=== PATIENT | female | born 1985 | race Caucasian/White ===

== ENCOUNTER 2020-04-13 15:26 | Emergency (ER) | payer OTHER ==
[~2020-04-13] VITALS: Ht 149.9 cm; Wt 52.2 kg
--- OUTSIDE RECORDS SUMMARY | ~2020-04-13 | XMS | Encounter Summary ---
Demographics + + + | Address | [address] | | | [place] [address] | + + + | Home Phone | | + + + | Preferred Language | Unknown | + + + | Marital Status | Single | + + + | Uatsdin Affiliation | 1013 | + + + | Race | Unknown | + + + | Ethnic Group | Unknown | + + + Author + + + | Author | [facility] | | | and Errolana | + + + | Organization | [facility] | | | and Errolana | + + + | Address | Unknown | + + + | Phone | Unavailable | + + + Support + + +---------+ + | Name | Relationship | Address | Phone | + + +---------+ + | Rashmi Kidd | ECON | Unknown | | + + +---------+ + Care Team Providers + +------+ + | Care Wax Pattern Assembler Name | Role | Phone | + +------+ + PCP | Unavailable | + +------+ + Encounter Details +--------+ + + + + | Date | Type | Department | Care Team | Description | +--------+ + + + + | 06/15/ | Hospital | [facility] | Duglas Carolina MD | EARLY ONSET | | 2001 - | Encounter | [facility] | [address] | DELIVERY-UNSPEC | | | | AND DELIV[address] | [address] [place], [place] | | | 06/[address]/ | | [address] | [id number] | | | 2001 | | [place], [place] | | | | | | [address] | | | | | | [phone] | | | +--------+ + + + + Social History + +-------+ +--------+------+ | Tobacco Use | Types | Packs/Day | Years | Date | | | | | Used | | + +-------+ +--------+------+ | Never Assessed | | | | | + +-------+ +--------+------+ + + + | Sex Assigned at | Date Recorded | | | | + + + | Not on file | | + + + + + + + | Job Start Date | Occupation | Industry | + + + + | Not on file | Not on file | Not on file | + + + + + + + + | Travel History | Travel Start | Travel End | + + + + + + | No recent travel history available. | + + documented as of this encounter Plan of Treatment Not on filedocumented as of this encounter Visit Diagnoses + + | Diagnosis | + + | Early onset of delivery, unspecified as to episode of care | + + documented in this encounter"
--- OUTSIDE RECORDS SUMMARY | ~2020-04-13 | XMS | Encounter Summary ---
Demographics + + + | Address | [address] | | | [place] [address] | + + + | Home Phone | | + + + | Preferred Language | Unknown | + + + | Marital Status | Single | + + + | Yazdanism Affiliation | 1013 | + + + | Race | Unknown | + + + | Ethnic Group | Unknown | + + + Author + + + | Author | [facility] | | | and Errolana | + + + | Organization | [facility] | | | and Errolana | [...] Team Providers + +------+ + | Care Dynamite Packing Machine Feeder Name | Role | Phone | + +------+ + PCP | Unavailable | + +------+ + Encounter Details +--------+ + + + + | Date | Type | Department | Care Team | Description | +--------+ + + + + | 09/28/ | Emergency | [facility] | Conversion | Encounter for Other | | 2008 | | MEDICAL CENTER | Transaction, | Specified Aftercare | | | | EMERGENCY CENTER | Provider Unknown | | | | | [address] [facility] [address] | | | | | | [place], [place] | (Fax) | | | | | [address] | | | | | | [phone] | | | +--------+ + + + [...] + | Diagnosis | + + | Encounter for other specified aftercare | + + documented in this encounter"
--- OUTSIDE RECORDS SUMMARY | ~2020-04-13 | XMS | Encounter Summary ---
Demographics + + + | Address | [address] | | | [place] [address] | + + + | Home Phone | | + + + | Preferred Language | Unknown | + + + | Marital Status | Single | + + + | Hinduism Affiliation | 1013 | + + + | Race | Unknown | + + + | Ethnic Group | Unknown | + + + Author + + + | Author | [facility] | | | and Errolana | + + + | Organization | [facility] | | | and Errolana | [...] Team Providers + +------+ + | Care Paper Tube Cutter Name | Role | Phone | + +------+ + PCP | Unavailable | + +------+ + Encounter Details +--------+ + + + + | Date | Type | Department | Care Team | Description | +--------+ + + + + | 03/12/ | Emergency | [facility] | Leonard Eaton, | Abdominal Pain, | | 2009 | | MEDICAL CENTER | MD Castanon [address] | Unspecified Site | | | | EMERGENCY CENTER | [facility] | | | | | [address] | [address] | | | | | [place], [place] | | | | | | [address] | | | | | | [phone] | | | +--------+ + + + [...] Not on filedocumented as of this encounter Procedures + +--------+ + + + | Procedure Name | Priori | Date/Time | Associated Diagnosis | Comments | | | ty | | | | + +--------+ + + + | CT RENAL STONE WO | Routin | 03/12/2010 | | Results for this | | CONTRAST | e | 10:14 AM | | procedure are in the | | | | PDT | | results section. | + +--------+ + + + documented in this encounter Results CT Renal Stone Wo Contrast (03/12/2010 10:14 AM PDT) + + | Specimen | + + | | + + + + + | Narrative | Performed At | + + + | [id number] [facility] | | | [facility] [address] | | | , RADIOLOGY | | | Patient Name: RUBY VICKERS Date of : 1985 | | | Medical Record: [id number] Account: [id number] EMR/ED T1051/ | | | Exam Date/Time: 03/12/2010 09:31 A Ordering | | | Provider: LEONARD EATON Order Detail: 6400 / / HCT Exam | | | Description: CT URINARY TRACT (ABDOMEN/PELVIS) | | | | | | CT URINARY TRACT (CT ABDOMEN AND PELVIS) 03/12/2010 HISTORY | | | Hematuria. TECHNIQUE CT of abdomen and pelvis without oral or | | | intravenous contrast. Contiguous transaxial 5 mm tomograms through | | | the abdomen and pelvis without oral or intravenous contrast. | | | COMPARISON None. FINDINGS Lung bases: No masses or nodules are | | | seen in the lung bases. No pleural effusion. Abdomen: Abdomen is | | | assessed without oral or intravenous contrast. No focal hepatic or | | | splenic lesions are seen. The spleen is not enlarged. No pancreatic | | | mass or cyst. No gallstones. No adrenal masses. No stones are seen | | | in the right or left kidney and no hydronephrosis. There is no | | | hydroureter. No stones are seen in the right or left ureter. Two | | | calcifications are seen in the broad ligament on the left. These are | | | likely vascular phleboliths. No stones are seen in the urinary bladder | | | and no mass. The uterus is anteflexed. There is gas and fluid in | | | nondistended small bowel loops. Pelvis: No intraluminal mass is | | | seen in the urinary bladder. A cyst to the right of midline on series | | | 2 image 60 is thought to be within the right ovary. No rectal mass. | | | No ventral hernia. IMPRESSION 1. No stones are seen in the right | | | or left kidneys, and no stones in ureters or urinary bladder. No | | | hydronephrosis or hydroureter. 2. No abdominal or pelvic mass or | | | lymphadenopathy. Read by ADA PARIS MD 03/12/2010 10:44 | | | A Electronically Signed by ADA PARIS MD 03/12/2010 06:37 P | | | A P [id number]/ | | | cc: PHYSICIAN ED LEONARD DO ADA ALVARADO | | | MD RAINA | | + + + + + | Procedure Note | + + | Constantine Waite - 07/18/2019 3:37 PM PDT | | [id number] | | [facility] | | [facility] [address] | | , | | RADIOLOGY | | | | Patient Name: RUBY VICKERS | | Date of : 1985 | | Medical Record: [id number] | | Account: [id number] | | EMR/ED T1051/ | | | | | | Exam Date/Time: 03/12/2010 09:31 A | | Ordering Provider: LEONARD EATON | | Order Detail: 6400 / / HCT | | Exam Description: CT URINARY TRACT (ABDOMEN/PELVIS) | | | | CT URINARY TRACT (CT ABDOMEN AND PELVIS) 03/12/2010 | | | | HISTORY | | Hematuria. | | | | TECHNIQUE | | CT of abdomen and pelvis without oral or intravenous contrast. | | Contiguous transaxial 5 mm tomograms through the abdomen and pelvis | | without oral or intravenous contrast. | | | | COMPARISON | | None. | | | | FINDINGS | | Lung bases: No masses or nodules are seen in the lung bases. No pleural | | effusion. | | | | Abdomen: Abdomen is assessed without oral or intravenous contrast. No | | focal hepatic or splenic lesions are seen. The spleen is not enlarged. | | No pancreatic mass or cyst. No gallstones. No adrenal masses. | | | | No stones are seen in the right or left kidney and no hydronephrosis. | | There is no hydroureter. No stones are seen in the right or left ureter. | | Two calcifications are seen in the broad ligament on the left. These are | | likely vascular phleboliths. No stones are seen in the urinary bladder | | and no mass. The uterus is anteflexed. | | | | There is gas and fluid in nondistended small bowel loops. | | | | Pelvis: No intraluminal mass is seen in the urinary bladder. A cyst to | | the right of midline on series 2 image 60 is thought to be within the | | right ovary. No rectal mass. No ventral hernia. | | | | IMPRESSION | | 1. No stones are seen in the right or left kidneys, and no stones in | | ureters or urinary bladder. No hydronephrosis or hydroureter. | | 2. No abdominal or pelvic mass or lymphadenopathy. | | | | | | | | Read by | | ADA PARIS MD 03/12/2010 10:44 A | | Electronically Signed by | | ADA PARIS MD 03/12/2010 06:37 P | | | | A | | P | | SHANNAN/melvin/[id number]/ | | cc: PHYSICIAN ED | | LEONARD EATON DO | | ADA PARIS MD | + + documented in this encounter Visit Diagnoses + + | Diagnosis | + + | Abdominal pain, unspecified site | + + documented in this encounter"
--- OUTSIDE RECORDS SUMMARY | ~2020-04-13 | XMS | Encounter Summary ---
Demographics + + + | Address | [address] | | | [place] [address] | + + + | Home Phone | | + + + | Preferred Language | Unknown | + + + | Marital Status | Single | + + + | Episcopalian Affiliation | 1013 | + + + | Race | Unknown | + + + | Ethnic Group | Unknown | + + + Author + + + | Author | [facility] | | | and Errolana | + + + | Organization | [facility] | | | and Errolana | [...] Team Providers + +------+ + | Care Crew Person Name | Role | Phone | + +------+ + PCP | Unavailable | + +------+ + Encounter Details +--------+ + + + + | Date | Type | Department | Care Team | Description | +--------+ + + + + | 10/03/ | Emergency | [facility] | Conversion | Encounter for Other | | 2008 | | MEDICAL CENTER | Transaction, | Specified Aftercare | | | | EMERGENCY CENTER | Provider Unknown | | | | | [address] [facility] | | | | | | [place], [place] | (Fax) | | | | | [address] | | | | | | [phone] | | | +--------+ + + + [...]
--- OUTSIDE RECORDS SUMMARY | ~2020-04-13 | XMS | Encounter Summary ---
Demographics + + + | Address | [address] | | | [place] [address] | + + + | Home Phone | | + + + | Preferred Language | Unknown | + + + | Marital Status | Single | + + + | Rastafari Affiliation | 1013 | + + + | Race | Unknown | + + + | Ethnic Group | Unknown | + + + Author + + + | Author | [facility] | | | and Errolana | + + + | Organization | [facility] | | | and Errolana | [...] Team Providers + +------+ + | Care Director Of Outside Sales Name | Role | Phone | + +------+ + PCP | Unavailable | + +------+ + Encounter Details +--------+ + + + + | Date | Type | Department | Care Team | Description | +--------+ + + + + | 05/18/ | Emergency | [facility] | Migel Brumfield, | Flank pain, acute | | 2011 - | | MEDICAL CENTER | MD [address] [facility] | | | | | EMERGENCY CENTER | [place], [place] | | | 05/19/ | | [address] | [address] | | | 2011 | | [place], [place] | | | | | | [address] | | | | | | [phone] | | | +--------+ + + + + Social History + +-------+ +--------+------+ | Tobacco Use | Types | Packs/Day | Years | Date | | | | | Used | | + +-------+ +--------+------+ | Current Every Day | | | | | | Smoker | | | | | + +-------+ [...] + | Diagnosis | + + | Flank pain, acute Abdominal pain, unspecified site | + + documented in this encounter"
--- OUTSIDE RECORDS SUMMARY | ~2020-04-13 | XMS | Clinical Summary ---
Demographics + + + | Address | [address] | | | [place] [address] | + + + | Home Phone | | + + + | Preferred Language | Unknown | + + + | Marital Status | Single | + + + | Pentecostalism Affiliation | 1013 | + + + | Race | Unknown | + + + | Ethnic Group | Unknown | + + + Author + + + | Author | [facility] | | | and Errolana | + + + | Organization | [facility] | | | and [...] Team Providers + +------+ + | Care French Pastry Cook Name | Role | Phone | + +------+ + PCP | Unavailable | + +------+ + Allergies Not on File Medications Not on file Active Problems Not on file Social History + +-------+ +--------+------+ | Tobacco [...] recent travel history available. | + + Last Filed Vital Signs Not on file Plan of Treatment + + + + + | Health Maintenance | Due Date | Last Done | Comments | + + + + + | Vaccine: | | | | | Dtap/Tdap/Td (1 - | 4 | | | | Tdap) | | | | + + + + + | Cervical Cancer | | | | | Screening (Pap) | 3 | | | + + + + + | Vaccine: Influenza | | | | | (Season Ended) | 0 | | | + + + + + Results Not on filefrom Last 3 Months"
--- OUTSIDE RECORDS SUMMARY | ~2020-04-13 | XMS | Encounter Summary ---
Demographics + + + | Address | [address] | | | [place] [address] | + + + | Home Phone | | + + + | Preferred Language | Unknown | + + + | Marital Status | Single | + + + | Mandaen Affiliation | 1013 | + + + | Race | Unknown | + + + | Ethnic Group | Unknown | + + + Author + + + | Author | [facility] | | | and Errolana | + + + | Organization | [facility] | | | and Errolana [...] Team Providers + +------+ + | Care Athletic Agent Name | Role | Phone | + +------+ + PCP | Unavailable | + +------+ + Encounter Details +--------+ + + + + | Date | Type | Department | Care Team | Description | +--------+ + + + + | 03/12/ | Emergency | [facility] | Leonard Eaton, | Abdominal Pain, | | 2009 | | MEDICAL CENTER | MD [address] | Unspecified Site | | | | EMERGENCY CENTER | [facility] | | | | | [address] | [address] | | | | | [place], [place] | | | | | | [address] | | | | | | [phone] | | | +--------+ + + + [...] Performed At | + + + | [id number] [facility] | | | [facility] [address] | | | , RADIOLOGY | | | Patient Name: RUBY VICKERS Date of : 1985 | | | Medical Record: [id number] Account: [id number] EMR/ED T1051/ | | | Exam Date/Time: [...] 06:37 P | | | A P [id number]/ | | | cc: PHYSICIAN ED LEONARD DO ADA ALVARADO | | | MD RAINA | | + + + + + | Procedure Note | + + | Constantine Waite - 07/18/2019 3:37 PM PDT | | [id number] | | [facility] | | [facility] [address] | | , | | RADIOLOGY | | | | Patient Name: RUBY VICKERS | | Date of : 1985 | | Medical Record: [id number] | | Account: [id number] | | EMR/ED T1051/ | | | [...] | A | | P | | SHANNAN/melvin/[id number]/ | | cc: PHYSICIAN ED | | LEONARD EATON DO | | ADA PARIS MD | + + documented in this encounter Visit Diagnoses + + | Diagnosis | + + | Abdominal pain, unspecified site | + + documented in this encounter"
--- OUTSIDE RECORDS SUMMARY | ~2020-04-13 | XMS | Encounter Summary ---
Demographics + + + | Address | [address] | | | [place] [address] | + + + | Home Phone | | + + + | Preferred Language | Unknown | + + + | Marital Status | Single | + + + | Confucianist Affiliation | 1013 | + + + | Race | Unknown | + + + | Ethnic Group | Unknown | + + + Author + + + | Author | [facility] | | | and Errolana | + + + | Organization | [facility] | | | and Errolana [...] Team Providers + +------+ + | Care Direct Care Provider Name | Role | Phone | + +------+ + PCP | Unavailable | + +------+ + Encounter Details +--------+ + + + + | Date | Type | Department | Care Team | Description | +--------+ + + + + | 09/28/ | Emergency | [facility] | Conversion | Encounter for Other | | 2008 | | MEDICAL CENTER | Transaction, | Specified Aftercare | | | | EMERGENCY CENTER | Provider Unknown | | | | | [address] [facility] | | | | | | [place], [place] | (Fax) | | | | | [address] | | | | | | [phone] | | | +--------+ + + + [...]
--- OUTSIDE RECORDS SUMMARY | ~2020-04-13 | XMS | Encounter Summary ---
Demographics + + + | Address | [address] | | | [place] [address] | + + + | Home Phone | | + + + | Preferred Language | Unknown | + + + | Marital Status | Single | + + + | Restorationist Affiliation | 1013 | + + + | Race | Unknown | + + + | Ethnic Group | Unknown | + + + Author + + + | Author | [facility] | | | and Errolana | + + + | Organization | [facility] | | | and Errolana [...] Team Providers + +------+ + | Care Dean Of Girls Name | Role | Phone | + +------+ + PCP | Unavailable | + +------+ + Encounter Details +--------+ + + + + | Date | Type | Department | Care Team | Description | +--------+ + + + + | 09/26/ | Emergency | [facility] | Conversion | Pain in Limb | | 2008 | | MEDICAL CENTER | Transaction, | | | | | EMERGENCY CENTER | Provider Unknown | | | | | [address] [facility] | | | | | | [place], [place] | (Fax) | | | | | [address] | | | | | | [phone] | | | +--------+ + + + [...] + | Diagnosis | + + | Pain in soft tissues of limb Pain in limb | + + documented in this encounter"
--- OUTSIDE RECORDS SUMMARY | ~2020-04-13 | XMS | Clinical Summary ---
Demographics + + + | Address | [address] | | | [place] [address] | + + + | Home Phone | | + + + | Preferred Language | Unknown | + + + | Marital Status | Single | + + + | Jew Affiliation | 1013 | + + + | Race | Unknown | + + + | Ethnic Group | Unknown | + + + Author + + + | Author | [facility] | | | and Errolana | + + + | Organization | [facility] | | | and [...] Team Providers + +------+ + | Care Protection Chief Industrial Plant Name | Role | Phone | + [...]
--- OUTSIDE RECORDS SUMMARY | ~2020-04-13 | XMS | Encounter Summary ---
Demographics + + + | Address | [address] | | | [place] [address] | + + + | Home Phone | | + + + | Preferred Language | Unknown | + + + | Marital Status | Single | + + + | Episcopal Affiliation | 1013 | + + + | Race | Unknown | + + + | Ethnic Group | Unknown | + + + Author + + + | Author | [facility] | | | and Errolana | + + + | Organization | [facility] | | | and Errolana [...] Team Providers + +------+ + | Care Patient Portal Representative Name | Role | Phone | + +------+ + PCP | Unavailable | + +------+ + Encounter Details +--------+ + + + + | Date | Type | Department | Care Team | Description | +--------+ + + + + | 10/03/ | Emergency | [facility] | Conversion | Encounter for Other | | 2008 | | MEDICAL CENTER | Transaction, | Specified Aftercare | | | | EMERGENCY CENTER | Provider Unknown | | | | | [address] [facility] [facility] | | | | | | [place], [place] | (Fax) | | | | | [address] | | | | | | [phone] | | | +--------+ + + + [...]
--- OUTSIDE RECORDS SUMMARY | ~2020-04-13 | XMS | Encounter Summary ---
Demographics + + + | Address | [address] | | | [place] [address] | + + + | Home Phone | | + + + | Preferred Language | Unknown | + + + | Marital Status | Single | + + + | Mosque Affiliation | 1013 | + + + | Race | Unknown | + + + | Ethnic Group | Unknown | + + + Author + + + | Author | [facility] | | | and Errolana | + + + | Organization | [facility] | | | and [...] Team Providers + +------+ + | Care Fractionating Still Operator Name | Role | Phone | + +------+ + PCP | Unavailable | + +------+ + Encounter Details +--------+ + + + + | Date | Type | Department | Care Team | Description | +--------+ + + + + | 05/18/ | Emergency | [facility] | Migel Brumfield, | Flank pain, acute | | 2011 - | | MEDICAL CENTER | MD [address] [facility] | | | | | EMERGENCY CENTER | [place], [place] | | | 05/19/ | | [address] | [address] | | | 2011 | | [place], [place] | | | | | | [address] | | | | | | [phone] | | | +--------+ + + + [...]
--- OUTSIDE RECORDS SUMMARY | ~2020-04-13 | XMS | Encounter Summary ---
Demographics + + + | Address | [address] | | | [place] [address] | + + + | Home Phone | | + + + | Preferred Language | Unknown | + + + | Marital Status | Single | + + + | Amish Affiliation | 1013 | + + + | Race | Unknown | + + + | Ethnic Group | Unknown | + + + Author + + + | Author | [facility] | | | and Errolana | + + + | Organization | [facility] | | | and [...] Team Providers + +------+ + | Care Information Operator Name | Role | Phone | + +------+ + PCP | Unavailable | + +------+ + Encounter Details +--------+ + + + + | Date | Type | Department | Care Team | Description | +--------+ + + + + | 06/15/ | Hospital | [facility] | Duglas Carolina MD | EARLY ONSET | | 2001 - | Encounter | [facility] | [address] | DELIVERY-UNSPEC | | | | AND DELIVERY [address] | [address] [place], [place] | | | 06/17/ | | [address] | [id number] | | | 2001 | | [place], [place] | | | | | | [address] | | | | | | [phone] | | | +--------+ + + + [...]
--- OUTSIDE RECORDS SUMMARY | ~2020-04-13 | XMS | Encounter Summary ---
Demographics + + + | Address | [address] | | | [place] [address] | + + + | Home Phone | | + + + | Preferred Language | Unknown | + + + | Marital Status | Single | + + + | Restorationism Affiliation | 1013 | + + + | Race | Unknown | + + + | Ethnic Group | Unknown | + + + Author + + + | Author | [facility] | | | and Errolana | + + + | Organization | [facility] | | | and Errolana [...] Team Providers + +------+ + | Care Skiving Machine Operator Name | Role | Phone | [...] | | | | | [address] [facility] | | | | | | [place], [place] | (Fax) | | | | | [address] | | | | | | [phone] | | | +--------+ + + + [...]
[2020-04-13] MEDS ORDERED: NORCO 7.5-3251 EACH PO (17:37)
== END 2020-04-13 18:07 | disposition home or self-care (01) ==
LOC: ED 15:26
PROC: 0HQ1XZZ Repair Face Skin, External Approach (ICD-10-PCS; principal; 2020-04-13)
DX: S01.312A Laceration without foreign body of left ear, initial encounter (principal); S01.412A Laceration without foreign body of left cheek and temporomandibular area, initial encounter; S83.91XA Sprain of unspecified site of right knee, initial encounter; S70.312A Abrasion, left thigh, initial encounter; F17.200 Nicotine dependence, unspecified, uncomplicated; Z88.8 Allergy status to other drugs, medicaments and biological substances; V27.4XXA Motorcycle driver injured in collision with fixed or stationary object in traffic accident, initial encounter
CPT/HCPCS: 12011; 73560; 99284-25; A9270